=== PATIENT | male | born 1955 | race Caucasian/White ===

== ENCOUNTER 2020-08-13 11:16 | Emergency (ER) | payer MEDICARE, OTHER | END 2020-08-13 15:56 | disposition home or self-care (01) | LOC: FER 11:16 | DX: U07.1 COVID-19 (principal); I10 Essential (primary) hypertension; E66.9 Obesity, unspecified; R19.7 Diarrhea, unspecified | CPT/HCPCS: 36600; 82803; J7050; M0239 ==